=== PATIENT | female | born 1975 | race African-American/Black ===

== ENCOUNTER 2022-06-07 00:14 | Emergency (ER) | payer SELFPAY ==
[~2022-06-07] VITALS: Ht 165.1 cm; Wt 51.7 kg
[2022-06-07 00:28] VITALS: BP 158/103
[2022-06-07 00:32] VITALS: BP 158/103
[2022-06-07] MEDS ORDERED: TYLENOL PO ONE (00:35)
[2022-06-07] MEDS: TYLENOL PO STA (00:36)
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
--- NOTE | 2022-06-07 00:58 | DIREP ---
PROCEDURE:XRAY FOOT MIN 3 VWS-LT COMPARISON:None. INDICATIONS:trauma L foot/great toe FINDINGS: BONES:Normal. JOINTS:Normal. SOFT TISSUES:Normal. OTHER:No additional findings. CONCLUSION:No acute findings. Dictated by: Jimmy Albarado MD on 06/07/2022 at 00:56 AM
--- NOTE | 2022-06-07 01:25 | NUR ---
POST OP SHOE PLACED ON PATIENTS LEFT FOOT, PMS INTACT
[2022-06-07 01:30] VITALS: BP 147/98
== END 2022-06-07 01:30 | disposition home or self-care (01) ==
LOC: ER 00:14
DX: S90.32XA Contusion of left foot, initial encounter (principal); F17.210 Nicotine dependence, cigarettes, uncomplicated; G89.11 Acute pain due to trauma; I10 Essential (primary) hypertension; Y04.0XXA Assault by unarmed brawl or fight, initial encounter; Y93.89 Activity, other specified; Y92.009 Unspecified place in unspecified non-institutional (private) residence as the place of occurrence of the external cause; Y99.8 Other external cause status; Z88.0 Allergy status to penicillin; Z88.1 Allergy status to other antibiotic agents
CPT/HCPCS: 99283; 73630; A9150